=== PATIENT | male | born 1925 | race Caucasian/White ===

== ENCOUNTER 2017-01-28 00:21 | Emergency (ER) | payer OTHER ==
[~2017-01-28] VITALS: Ht 175.3 cm; Wt 61.1 kg
[~2017-01-28 00:21] MED LIST: ACCOLATE20 MG PO; ACETAMINOPHEN-1 EAC1 PO; AMLODIPINE BESYL5 MG PO; ASPIR-LOW81 MG PO; ASPIRIN81 M1 PO; CELEXA10 MG PO; CIPROFLOXACIN500 M1 PO; CITALOPRAM HBR10 MG PO; CYANOCOBALAM1000 MCG PO; DUONEB 2.5-0.5 M3 ML IH; FLOMAX0.4 MG PO; GLIPIZIDE XL10 MG PO; GLIPIZIDE10 M1 PO; GLIPIZIDE10 MG PO; LISINOPRIL10 MG PO; LOPERAMIDE2 MG PO; LORAZEPAM0.5 MG PO; OMEPRAZOLE20 M3 PO; PREDNISONE10 MG PO; PRILOSEC20 MG PO; SIMVASTATIN40 M1 PO; SIMVASTATIN40 MG PO; SINGULAIR10 MG PO; SPIRIVA1 INHALATI IH; SYMBICORT60 INHALAT IH; VITAMIN B-6100 MG PO; VITAMIN D31000 UNI2 PO; ZAFIRLUKAST20 M1 PO; ZESTRIL,PRINIVI10 MG PO; [UNRECOGNIZED DRUG - OTHER]
[2017-01-28 02:15] LABS: ADD MIUA? YES; BILIRUBIN NEGATIVE; BLOOD SMALL; COLOR YELLOW ((YELLOW)); GLUCOSE (STRIP) NEGATIVE; KETONES NEGATIVE; LEUKOCYTES MODERATE; NITRITE NEGATIVE; PROTEIN (STRIP) 100; UROBILINOGEN 0.2 MG/DL (0.2-1.0)
[2017-01-28 02:30] LABS: UCUL ADDED? YES; WHITE BLOOD CELLS TNTC /HPF (0-5)
[2017-01-28] MEDS ORDERED: KEFLEX500 MG PO (02:56)
[2017-01-28 04:13] VITALS: BP 101/55
== END 2017-01-28 04:17 | disposition home or self-care (01) ==
LOC: EME → EDBD 00:21 → EME 00:21
PROVIDERS: Emergency Medicine
DX: N39.0 Urinary tract infection, site not specified (principal); F03.90 Unspecified dementia, unspecified severity, without behavioral disturbance, psychotic disturbance, mood disturbance, and anxiety; M25.512 Pain in left shoulder; E11.9 Type 2 diabetes mellitus without complications; W06.XXXA Fall from bed, initial encounter; Y92.122 Bedroom in nursing home as the place of occurrence of the external cause; E78.5 Hyperlipidemia, unspecified; I10 Essential (primary) hypertension; Z66 Do not resuscitate; Z87.891 Personal history of nicotine dependence
CPT/HCPCS: 70450; 70486; 71010; 72170; 73030; 81003; 87077; 87086; 87186; 99281; 99284

== ENCOUNTER 2017-02-15 10:09 | Emergency (ER) | payer OTHER ==
[~2017-02-15] VITALS: Ht 182.9 cm; Wt 57.1 kg
[~2017-02-15 10:09] MED LIST changes: +KEFLEX500 MG PO
[2017-02-15] MEDS ORDERED: ALBUTEROL2.5 MG/3 M IH (11:47)
[2017-02-15] MEDS ORDERED: PREDNISONE20 MG PO (11:47)
[2017-02-15 13:04] VITALS: BP 111/51
== END 2017-02-15 13:57 | disposition home or self-care (01) ==
LOC: EME 10:09
DX: J44.1 Chronic obstructive pulmonary disease with (acute) exacerbation (principal); J45.909 Unspecified asthma, uncomplicated; E11.9 Type 2 diabetes mellitus without complications; E78.5 Hyperlipidemia, unspecified; I10 Essential (primary) hypertension; K21.9 Gastro-esophageal reflux disease without esophagitis; F03.90 Unspecified dementia, unspecified severity, without behavioral disturbance, psychotic disturbance, mood disturbance, and anxiety; Z87.891 Personal history of nicotine dependence; Z79.84 Long term (current) use of oral hypoglycemic drugs
CPT/HCPCS: 71020; 93005; 94640; 99281; 99283; J7512